=== PATIENT | male | born 1990 | race Caucasian/White ===

== ENCOUNTER 2022-01-20 08:56 | Emergency (ER) | payer OTHER ==
[~2022-01-20] VITALS: Ht 185.4 cm; Wt 83.9 kg
[2022-01-20] MEDS ORDERED: Celexa10 MG PO (09:51)
[2022-01-20] MEDS ORDERED: REMERON30 M2 PO (09:51)
[2022-01-20] MEDS ORDERED: WAKIX17.8 MG PO (09:52)
[2022-01-20] MEDS ORDERED: TRAZ50 PO (12:44)
== END 2022-01-20 12:55 | disposition home or self-care (01) ==
LOC: ER 08:56
DX: Z04.1 Encounter for examination and observation following transport accident (principal); F22 Delusional disorders; G47.00 Insomnia, unspecified; G47.419 Narcolepsy without cataplexy; Z88.0 Allergy status to penicillin; Z79.899 Other long term (current) drug therapy
CPT/HCPCS: 70450; J2060; J2250

== ENCOUNTER 2022-01-21 01:22 | Emergency (ER) | payer SELFPAY ==
[~2022-01-21] VITALS: Ht 180.3 cm; Wt 59.0 kg
[~2022-01-21 01:22] MED LIST: Celexa10 MG PO; REMERON30 M2 PO; TRAZ50 PO; WAKIX17.8 MG PO
== END 2022-01-21 03:25 | disposition home or self-care (01) ==
LOC: ER 01:22
DX: F29 Unspecified psychosis not due to a substance or known physiological condition (principal); F51.05 Insomnia due to other mental disorder
CPT/HCPCS: 99283; A9270

== ENCOUNTER 2022-07-05 09:24 | Day surgery (SDC) | payer OTHER ==
[~2022-07-05] VITALS: Ht 180.3 cm; Wt 73.9 kg
[2022-07-05] MEDS ORDERED: QUET100 (10:16)
[2022-07-05] MEDS ORDERED: MIRT15ST PO (10:16)
[2022-07-05] MEDS ORDERED: QUET100 PO (10:17)
--- NOTE | 2022-07-05 12:27 | NUR ---
07/05/22 1227 Susan Goel ROPIVACAINE 0.5% 30 MLS MIXED W/ EPI 0.15ML (1MG/ML) PER ORDER TO MAKE ROPIVACAINE 0.5% 1:200,000 FOR INJECTION AT OPSITE BY .
--- NOTE | 2022-07-05 14:30 | NUR ---
07/05/22 1430 Sasha Benjamin PT IN RECLINER WITH GIRLFRIEND AT CHAIRSIDE. DENIES NAUSEA. C/O 5/10 PAIN IN R ANKLE. FENTANYL 25MCG IV X1 GIVEN NOW. TOTAL = 125MCG.
== END 2022-07-05 14:35 | disposition home or self-care (01) ==
LOC: ORSCSDS 09:24
PROVIDERS: Podiatrist Foot & Ankle Surgery
PROC: 0QSJ04Z Reposition Right Fibula with Internal Fixation Device, Open Approach (ICD-10-PCS; principal; 2022-07-05 11:00)
DX: S82.61XA Displaced fracture of lateral malleolus of right fibula, initial encounter for closed fracture (principal); S90.01XA Contusion of right ankle, initial encounter; V19.9XXA Pedal cyclist (driver) (passenger) injured in unspecified traffic accident, initial encounter
CPT/HCPCS: A9270; C1713; J0171; J1100; J2250; J2405; J2704; J2795; J3010; J7120

== ENCOUNTER 2022-10-12 15:25 | Emergency (ER) | payer OTHER ==
[~2022-10-12] VITALS: Ht 180.3 cm; Wt 65.8 kg
[~2022-10-12 15:25] MED LIST changes: +MIRT15ST PO; +QUET100; +QUET100 PO
[2022-10-12 16:12] LABS: BASOPHILS ABSOLUTE AUTO 0.06 K/mm3 (0.00-0.23); BASOPHILS PERCENT AUTO 1 % (0-2); EOSINOPHILS ABSOLUTE AUTO 0.04 K/mm3 (0.00-0.68); EOSINOPHILS PERCENT AUTO 0 % (0-6); Hematocrit 47.3 % (37.0-53.0); Hemoglobin 16.6 g/dL (13.5-17.5); IMMATURE GRAN ABSOLUTE AUTO 0.04 K/mm3 (0.00-0.10); IMMATURE GRAN PERCENT AUTO 0 % (0-1); LYMPHOCYTES ABSOLUTE AUTO 2.25 K/mm3 (0.84-5.20); LYMPHOCYTES PERCENT AUTO 18 % (21-46); MONOCYTES ABSOLUTE AUTO 1.26 K/mm3 (0.16-1.47); MONOCYTES PERCENT AUTO 10 % (4-13); Mean Corpuscular HGB 31.4 pg (26.0-34.0); Mean Corpuscular HGB Conc 35.1 g/dL (31.5-36.5); Mean Corpuscular Volume 90 fL (80-100); Mean Platelet Volume 10.5 fL (9.1-12.4); NEUTROPHILS ABSOLUTE AUTO 9.15 K/mm3 (1.96-9.15); NEUTROPHILS PERCENT AUTO 72 % (41-73); Platelet Count 400 K/mm3 (150-400); RDW Coefficient Variation 11.7 % (11.7-14.2); RDW Standard Deviation 38.4 fL (35.1-46.3); Red Blood Cell Count 5.28 M/mm3 (4.30-5.90)
[2022-10-12 16:30] LABS: Albumin, Blood 4.9 g/dL (3.4-5.0); Albumin/Globulin Ratio 1.4 (0.8-1.8); Bilirubin, Total 0.8 mg/dL (0.1-1.0); Bun/Creatinine Ratio 24.2 (12.0-20.0); Calcium, Blood 9.8 mg/dL (8.5-10.1); Creatinine, Blood 0.83 mg/dL (0.60-1.20); Globulin, Blood 3.6 g/dL (2.2-4.0); Magnesium, Blood 2.7 mg/dL (1.6-2.4); Potassium, Blood 3.6 mmol/L (3.5-5.5); Total Protein, Blood 8.5 g/dL (6.4-8.2)
[2022-10-12 18:08] LABS: Source, Urine Clean Catch
[2022-10-12 18:19] LABS: Appearance, Urine Hazy (Clear); Bilirubin, Urine Neg (Neg); Blood, Urine Neg (Neg); Color, Urine Yellow (P-Yellow); Glucose Qualitative, Urine Neg (Neg); Ketones, Urine 3+ (Neg); Leukocyte Esterase, Urine Neg (Neg); Nitrite, Urine Neg (Neg); Protein, Urine 2+ (Neg); Urobilinogen, Urine NORM (Normal); pH, Urine 6.5 (5.0-8.0)
[2022-10-12 18:33] LABS: Bacteria Rare /hpf; Calcium Oxalate Crystals Rare /hpf; Mucus Light (0-Heavy); Red Blood Cells, Urine 0-2 /hpf (0-2); Squamous Epithelial Cells Not Seen /hpf (Few); White Blood Cells, Urine 0-2 /hpf (0-5)
[2022-10-12] MEDS ORDERED: ALPR.5 PO (19:42)
[2022-10-12 19:45] VITALS: BP 127/75
== END 2022-10-12 20:02 | disposition home or self-care (01) ==
LOC: ER 15:25
PROVIDERS: Physician Assistant
DX: G47.00 Insomnia, unspecified (principal); G47.419 Narcolepsy without cataplexy; F41.9 Anxiety disorder, unspecified; Z88.0 Allergy status to penicillin
CPT/HCPCS: 74176; 80053; 81001; 83735; 85025; J2060; J7030

== ENCOUNTER 2022-10-19 18:10 | Emergency (ER) | payer OTHER ==
[~2022-10-19] VITALS: Ht 182.9 cm; Wt 65.8 kg
[~2022-10-19 18:10] MED LIST changes: +ALPR.5 PO
[2022-10-19 18:20] VITALS: BP 141/91
[2022-10-19] MEDS ORDERED: Ativan1 MG PO (19:24)
== END 2022-10-19 19:43 | disposition home or self-care (01) ==
LOC: ER 18:10
DX: F23 Brief psychotic disorder (principal); F41.0 Panic disorder [episodic paroxysmal anxiety]; G47.00 Insomnia, unspecified; G47.419 Narcolepsy without cataplexy; Z88.0 Allergy status to penicillin; Z79.899 Other long term (current) drug therapy
CPT/HCPCS: J2060